=== PATIENT | female | born 2000 | race Caucasian/White ===

== ENCOUNTER 2022-12-23 01:50 | Emergency (ER) | payer SELFPAY ==
[2022-12-23] MEDS: Lactated Ringers 1,000 ML IV ONE (03:15)
[2022-12-23 03:49] LABS: CHLORIDE,CL 107 mmol/L (98-107); ESTIMATED GFR 94 mL/min (>=60); SODIUM,NA 144 mmol/L (136-145)
== END 2022-12-23 04:26 | disposition home or self-care (01) ==
LOC: VM.ED 01:50
DX: F10.920 Alcohol use, unspecified with intoxication, uncomplicated (principal); F41.9 Anxiety disorder, unspecified; Y90.6 Blood alcohol level of 120-199 mg/100 ml
CPT/HCPCS: 80053; 80307; 85025; 96360; 99283; 99284-25; J7120